=== PATIENT | male | born 1940 | race Caucasian/White ===

== ENCOUNTER 2017-09-24 06:23 | Day surgery (SDC) | payer MEDICARE, OTHER ==
[~2017-09-24 06:23] MED LIST: Povidone-Iodine 5% Sterile Ophth Soln 30 ML Bottle EYELF ONE
[2017-09-24] MEDS ORDERED: Midazolam 1 MG/ML 2 ML SDV IV ONE (06:24)
[2017-09-24] MEDS ORDERED: Dexamethasone 4 MG/ML SDV IV ONE (06:24)
[2017-09-24] MEDS ORDERED: Sodium Chloride 0.9% 10 ML Syringe IV ONE (06:24)
[2017-09-24] MEDS ORDERED: Acetaminophen 325 MG Tab PO PRN (06:30)
[2017-09-24] MEDS ORDERED: Phenylephrine 10% Ophth Soln 5 ML Bot EYELF ONE (06:30)
[2017-09-24] MEDS ORDERED: Moxifloxacin 0.5% Ophth Soln 3 ML Bottle EYELF ONE (06:30)
[2017-09-24] MEDS ORDERED: Phenylephrine 10% Ophth Soln 5 ML Bot EYELF PRN (06:30)
[2017-09-24] MEDS ORDERED: Cataract Ophth Solution EYELF ONE (06:30)
[2017-09-24] MEDS ORDERED: Timolol Maleate 0.5% Ophth Soln 5 ML Bottle EYELF ONE (06:30)
[2017-09-24] MEDS ORDERED: Proparacaine 0.5% Ophth Soln 15 ML Bottle EYELF ONE (06:30)
[2017-09-24] MEDS ORDERED: Ondansetron 4 MG/2 ML SDV IVPUSH PRN (06:30)
[2017-09-24] MEDS ORDERED: Sodium Chloride 0.9% 10 ML Syringe FLUSH PRN (06:30)
[2017-09-24] MEDS ORDERED: Lidocaine 1% 30 ML SDV ONE (08:03)
[2017-09-24] MEDS ORDERED: Tetracaine HCl/PF 0.5% 4 ML Bottle EYELF ONE (08:03)
[2017-09-24] MEDS ORDERED: Apraclonidine 0.5% Ophth Soln 5 ML Bot EYELF ONE (08:04)
[2017-09-24] MEDS ORDERED: Diclofenac Sodium 0.1% Ophth Soln 5 ML Bottle EYELF ONE (08:04)
[2017-09-24] MEDS ORDERED: Balanced Salt Solution Ophth Irrig 500 ML Bottle IOCULAR ONE (08:05)
[2017-09-24] MEDS ORDERED: Dexamethasone/Neomycin/Polymyxin B Ophth Oint 3.5 GM Tube EYELF ONE (08:05)
[2017-09-24] MEDS ORDERED: Vancomycin 500 MG SDV EYELF ONE (08:05)
[2017-09-24] MEDS ORDERED: Chondroitin Sulfate/Hyaluronate Sodium Ophth Inj 0.5 ML Syringe IOCULAR ONE ×2 (08:05→08:36)
[2017-09-24] MEDS ORDERED: Balanced Salt Solution Ophth Irrig 15 ML Bottle EYELF ONE (08:06)
[2017-09-24] MEDS ORDERED: Acetylcholine 20 MG/2 ML Intraocular Inj Kit EYELF ONE (08:07)
--- NOTE | 2017-09-24 09:19 | OR ---
DATE: 09/24/2017 PREOPERATIVE DIAGNOSIS: Visually significant mixed cataract, left eye. Glaucoma with Istent. POSTOPERATIVE DIAGNOSIS: Visually singificant mixed cataract, left eye. Glaucoma with Istent. PROCEDURE: Extracapsular cataract extraction with intraocular lens implant, left eye. Istent was aborted. ANESTHESIA: Topical/local MAC. COMPLICATIONS: None. INDICATION: Mr. Fischer was seen in the clinic with complaints of blurred vision. His clinical examination revealed visually significant cataract and mild primary open angle glaucoma. I explained options. I offered cataract surgery and I explained risks preoperatively including the potential for infection, retinal detachment, loss of vision, need for additional surgery, amongst others. We discussed implant options. He requested a monofocal implant. I offered surgery with or without the eye stent. He requested the eye stent procedure. OPERATIVE DESCRIPTION: After informed consent was obtained and the risks, benefits, alternatives were explained, the patient was brought to the OR and topical anesthesia was administered to the left eye. He was prepped and draped in a sterile fashion. A sterile lid speculum was placed in the left eye to allow operative exposure. A full-thickness paracentesis was then made temporal. Preservative-free lidocaine followed by viscoelastic was injected into the anterior chamber. A 2.75 mm corneal incision was then made temporally. A bent needle cystotome was then used to create a small christian in the anterior capsule. A 360 degree curvilinear capsulorrhexis was created. Nucleus was hydrodissected, hydrodelineated, decompressed centrally and rotated, noted to be free of any adhesions. Nucleus was then removed using a quick chop technique at the iris plane. Following nucleus removal, the remaining cortical material was removed using the I and A handpiece. Additional viscoelastic was injected into the capsular bag. The intra-ocular lens was inserted. The viscoelastic was then aspirated from the posterior surface of the intra-ocular lens. Miochol was injected additional viscoelastic was injected. The patient's head was then repositioned 30 degrees away from the surgical field. The corneal prism was placed into the eye. The trabecular meshwork was then visualized. The iStent was then inserted into the anterior chamber. At the point of insertion, the patient looked very significantly to the right, a very small less than 1 hour iridodialysis occurred. Removed the iStent and elected not to insert it because of the potential risk for iris trauma. Small hyphema occurred. Hyphema was evacuated using the I and A handpiece. The remaining viscoelastic was aspirated. Wound and paracentesis sites were hydrated. A 0.1 mL of preservative-free vancomycin was injected intracamerally. Intra-ocular pressure was assessed and found to be in the high normal range. Wound and paracentesis sites were Janel negative. Intra-ocular lens was clear and well centered. Postoperative medications were administered. Sterile patch and shield was placed over the eye. Patient was awakened from the light sedation and transported to the postoperative recovery area. [facility] /[id number]
== END 2017-09-24 09:17 | disposition home or self-care (01) ==
LOC: DL.SDS 06:23
PROVIDERS: ATTEND Ophthalmology
DX: H40.1121 Primary open-angle glaucoma, left eye, mild stage (principal); H26.8 Other specified cataract; F32.9 Major depressive disorder, single episode, unspecified; E78.5 Hyperlipidemia, unspecified; G45.9 Transient cerebral ischemic attack, unspecified; Z79.899 Other long term (current) drug therapy; Z79.82 Long term (current) use of aspirin
CPT/HCPCS: 00142; 66984; A9270; C1780; C1783; J1100; J2250; J3370; J7050

== ENCOUNTER 2017-10-22 10:21 | Day surgery (SDC) | payer MEDICARE, OTHER ==
[~2017-10-22 10:21] MED LIST changes: +Acetaminophen 325 MG Tab PO PRN; +Cataract Ophth Solution EYERT ONE; +Moxifloxacin 0.5% Ophth Soln 3 ML Bottle EYERT ONE; +Ondansetron 4 MG/2 ML SDV IVPUSH PRN; +Phenylephrine 10% Ophth Soln 5 ML Bot EYERT ONE; +Phenylephrine 10% Ophth Soln 5 ML Bot EYERT PRN; -Povidone-Iodine 5% Sterile Ophth Soln 30 ML Bottle EYELF ONE; +Povidone-Iodine 5% Sterile Ophth Soln 30 ML Bottle EYERT ONE; +Proparacaine 0.5% Ophth Soln 15 ML Bottle EYERT ONE; +Sodium Chloride 0.9% 10 ML Syringe FLUSH PRN; +Timolol Maleate 0.5% Ophth Soln 5 ML Bottle EYERT ONE
[2017-10-22] MEDS ORDERED: Tetracaine HCl/PF 0.5% 4 ML Bottle EYERT ONE (11:10)
[2017-10-22] MEDS ORDERED: Apraclonidine 0.5% Ophth Soln 5 ML Bot EYERT ONE (11:11)
[2017-10-22] MEDS ORDERED: Povidone-Iodine 5% Sterile Ophth Soln 30 ML Bottle EYERT ONE (11:11)
[2017-10-22] MEDS ORDERED: Dexamethasone/Neomycin/Polymyxin B Ophth Oint 3.5 GM Tube EYERT ONE (11:12)
[2017-10-22] MEDS ORDERED: Chondroitin Sulfate/Hyaluronate Sodium Ophth Inj 0.75 ML Syringe EYERT ONE (11:13)
[2017-10-22] MEDS ORDERED: Lidocaine 1% 30 ML SDV ONE (11:13)
[2017-10-22] MEDS ORDERED: Vancomycin 500 MG SDV EYERT ONE (11:13)
[2017-10-22] MEDS ORDERED: Balanced Salt Solution Ophth Irrig 500 ML Bottle IOCULAR ONE (11:13)
--- NOTE | 2017-10-22 13:17 | OR ---
DATE: 10/22/2017 PREOPERATIVE DIAGNOSIS: Visually significant mixed cataract, right eye. POSTOPERATIVE DIAGNOSIS: Visually significant mixed cataract, right eye. PROCEDURE: Extracapsular cataract extraction with intraocular lens implant, right eye. ANESTHESIA: Topical/local MAC. COMPLICATIONS: None. INDICATION: Mr. Fischer was seen in the clinic. He has complained of a slow progressive decrease in vision. Clinical examination revealed visually significant cataract. He has symptoms of blurred vision, difficulty driving at night, difficulty seeing clock. Examination reveals mixed nuclear and cortical cataract. I explained options, I offered cataract surgery, and I explained risks. He is symptomatic and requested surgery to improve vision and function. We discussed implant options. He has requested a monofocal implant. I explained the potential for infection, retinal detachment, loss of vision, need for additional surgery, amongst others. He voiced an understanding and wished to proceed. OPERATIVE DESCRIPTION: After informed consent was obtained and the risks, benefits, and alternatives were explained, the patient was brought to the operative suite and topical anesthesia was administered. The patient was then prepped and draped in the sterile fashion and attention was placed on the right eye. A sterile lid speculum was placed into the right eye to allow operative exposure. A full-thickness paracentesis was made in the temporal portion of the operative eye. Preservative-free lidocaine 0.1 mL was injected into the anterior chamber followed by viscoelastic. A full-thickness corneal incision was then made into the anterior chamber. A bent needle cystotome was used to create a small christian in the anterior capsule. The capsulorrhexis forceps was then used to create a 360-degree curvilinear capsulorrhexis. The nucleus was then removed using a phacoemulsification handpiece and the remaining cortical material was then removed with irrigation and aspiration handpiece. Following removal of the cortical material, the capsular bag was then inspected and noted to be free of any holes or tears. Viscoelastic was then injected into the capsular bag and the intraocular lens was inserted into the capsular bag. The viscoelastic material was then removed from both the anterior and posterior chambers and from behind the IOL. The lens and capsular bag were then reinspected. The IOL was well centered and the capsular bag intact. The wound and paracentesis sites were inspected and hydrated with balanced saline solution. Both were found to be self- sealing. The intraocular pressure was assessed digitally and found to be within normal range. A good red reflex was noted at the completion of the procedure. No complications occurred during the operation. At the completion of the procedure, Maxitrol, Voltaren, and Iopidine drops were placed into the operative eye. A sterile eye shield was placed over the operative eye and the patient was transported to the postoperative recovery area having tolerated the procedure well. Postoperative instructions were given along with a postoperative appointment. The patient was advised to call with any questions or concerns. No complications occurred. [facility] /[id number]
== END 2017-10-22 12:15 | disposition home or self-care (01) ==
LOC: DL.SDS 10:21
PROVIDERS: ATTEND Ophthalmology
DX: H25.811 Combined forms of age-related cataract, right eye (principal); F32.9 Major depressive disorder, single episode, unspecified; E78.5 Hyperlipidemia, unspecified; Z86.73 Personal history of transient ischemic attack (TIA), and cerebral infarction without residual deficits; Z79.82 Long term (current) use of aspirin; Z79.899 Other long term (current) drug therapy
CPT/HCPCS: 66984; A9270; C1780; J3370; J7050; 00142